=== PATIENT | male | born 1995 | race Caucasian/White ===

== ENCOUNTER 2023-09-09 06:34 | Emergency (ER) | payer BC, SELFPAY ==
[2023-09-09 06:40] VITALS: BP 150/95; PULSE 99; RESP 20; TEMP 37.1; O2SAT 96; BMI 45.3
--- NOTE | 2023-09-09 06:42 | ED.NAVMDI ---
HPI - Nausea/Vomiting/Diarrhea General Chief complaint: Abdominal Pain Stated complaint: n/v Time Seen by Provider: 09/09/23 06:41 Source: patient Mode of arrival: ambulatory Limitations: no limitations History of Present Illness ED Provider: Dr. Derrek Hinojosa HPI Narrative: 28-year-old male with no significant past medical or surgical history who presents emergency department for evaluation nausea and vomiting x1 month. The patient states that his symptoms usually come on in the morning. He states that he has nausea and then dry heaves multiple times. He complains of intermittent epigastric pressure-like pain which is worse with the vomiting. He states that he sometimes retch is violently when he vomits and developed dots (petechiae) on his face. He also states that occasionally he vomits up bright red blood. Patient denied fever, chills, chest pain, shortness of breath, dark stools, bloody stools. He states that the vomiting sometimes comes on later in the day as well and he felt ill last night but was able to finish working. He states this morning his encouraged him to go to the emergency department to get evaluated since his symptoms have been persisting for a month. Denied weight loss or weight gain. He states he does smoke and vapes marijuana multiple times a day. Related Data Previous Rx's ?Medication ?Instructions ?Recorded omeprazole 20 mg capsule,delayed 20 mg PO DAILY 30 days #30 caps 09/09/23 release ondansetron 4 mg disintegrating 4 mg PO Q6-8H PRN nausea and 09/09/23 tablet vomiting #20 tabs Allergies Allergy/AdvReac Type Severity Reaction Status Date / Time No Known Allergies Allergy Unverified 09/09/23 06:41 [No Known Allergies*] Review of Systems Review of Systems: Yes all other systems are reviewed and are negative [facility] Past Medical History [facility] Narrative: Social history: He denies tobacco use. He denies alcohol use. He does smoke and vape marijuana daily. He states that he has done this for a long time. Social History Social History Advance Directives: No Advance Directives Information Provided: Yes Physical Exam Vital Signs: Vital Signs: Last Vital Signs Temp 98.6 F 09/09/23 10:26 Pulse 74 09/09/23 10:26 Resp 16 09/09/23 10:26 BP 116/70 09/09/23 10:26 Pulse Ox 99 09/09/23 10:26 O2 Del Method Room Air 09/09/23 10:26 BMI result Body Mass Index 45.3 Vital signs revealed an elevated respiratory rate of 20 and elevated blood pressure of 150/95 otherwise unremarkable Exam: General: Awake, alert in no distress Head: Normocephalic, atraumatic EENT: PERRL, Lids normal, sclera normal, conjunctiva normal, nose normal , ears normal, throat without erythema or exudates Neck: Supple, no adenopathy Lung: breath sounds symmetric, no wheezing, rales or rhonchi Chest: symmetric movement, nontender Heart: regular rate and rhythm, normal S1, S2 no murmurs or rubs Abdomen: soft, mild to moderate epigastric tenderness, nondistended, normal bowel sounds Back: no vertebral tenderness, no CVAT Extremities: no deformities, moves all extremities symmetrically Neuro: Awake, alert, oriented, normal speech, cranial nerves intact, moves all extremities symmetrically Psych: Pleasant, cooperative Medications Administered Discontinued Medications Generic Name Dose Route Start Last Admin Trade Name Freq PRN Reason Stop Dose Admin Sodium Chloride 1,000 mls @ 999 mls/hr 09/09/23 07:00 09/09/23 08:58 Ns IV 09/09/23 08:00 Infused .Q1H1M STA Infusion Ketorolac Tromethamine 15 mg 09/09/23 07:00 09/09/23 07:19 Ketorolac Tromethamine 15 Mg/Ml Vial IVPUSH 09/09/23 07:01 15 mg ONCE STA Administration Ondansetron HCl 4 mg 09/09/23 07:00 09/09/23 07:19 Ondansetron Hcl 4 Mg/2 Ml Vial IVPUSH 09/09/23 07:01 4 mg ONCE ONE Administration Medical Decision Making Medical Decision Making MDM Narrative: 28-year-old male with no significant past medical history or surgical history who presents emergency department for evaluation of nausea, vomiting, epigastric pain x1 month. Patient does smoke and vape marijuana daily. Vital signs revealed an elevated blood pressure and elevated respiratory rate otherwise unremarkable. Physical examination revealed epigastric tenderness. Differential diagnosis: ?Includes but is not limited to gastritis, esophagitis, cyclic vomiting syndrome, cannabis hyperemesis syndrome, anemia, electrolyte abnormalities Following evaluation was ordered: CBC, CMP Patient was initially treated with the following: IV insert, Toradol 15 mg IV, Zofran 4 mg IV, normal saline x1 L Course: 10:50 My interpretation patient's laboratory evaluation as follows: WBC elevated 11,500. H&H was normal. CMP was normal. Patient feels significant better after the above treatment. The patient's presentation is consistent with cannabis hyperemesis syndrome and I did discuss this with him. He was advised to stop smoking marijuana for at least 6 months to reverse this syndrome. He was also given prescription for Prilosec 20 mg once a day for 1 month and Zofran ODT 4 mg q.6 hours as needed for nausea and vomiting. Patient was given a work note, printed and verbal instructions and discharged home. Admission/Observation Consideration of admission/observation: Escalation of care including admission/observation considered Lab Data MDM Lab Attestation statement: I reviewed the patient's lab results. 09/09/23 07:10 09/09/23 07:10 Labs: Lab Results 09/09/23 Range/Units 07:10 WBC 11.5 H (4.8-10.8) X10*3/uL RBC 5.29 (4.60-5.80) X10*6/uL Hgb 14.6 (14.0-18.0) g/dl Hct 43.7 (42.0-52.0) % MCV 82.6 (80.0-98.0) fL MCH 27.6 (27.0-33.0) pg MCHC 33.4 (31.0-36.0) g/dl RDW 13.2 (11.0-16.0) % Plt Count 305 (160-400) X10*3/uL MPV 9.6 (9.4-12.4) fL Immature Gran % (Auto) 0.3 (0.0-0.4) % Neut % (Auto) 72.2 (45-73) % Lymph % (Auto) 14.7 L (20-40) % [place] % (Auto) 9.7 (2-11) % Eos % (Auto) 2.6 (0-4) % Baso % (Auto) 0.5 (0-2) % Lymph # (Auto) 1.7 (1.2-4.9) X10*3/uL [place] # (Auto) 1.1 (0.1-1.2) X10*3/uL Eos # (Auto) 0.3 (0.0-0.4) X10*3/uL Baso # (Auto) 0.1 (0.0-0.2) X10*3/uL Abs Immat Gran (auto) 0.04 H (0.00-0.03) X10*3/uL Absolute Neuts (auto) 8.3 (2.0-8.3) x10*3/uL Absolute Nucleated RBC 0.000 (0.0-0.012) X10*3/uL Nucleated RBC % (auto) 0.0 (0.0-0.2) /100WBC Sodium 139 (135-145) mmol/L Potassium 3.7 (3.3-5.1) mmol/L Chloride 106 (96-108) mmol/L Carbon Dioxide 21 L (22-29) mmol/L Anion Gap 16 (12-20) BUN 9 (9-16) mg/dL Creatinine 0.99 (0.5-1.4) mg/dL Estim Creat Clear Calc 169.9 Estimated GFR > 60 Random Glucose 108 (60-115) mg/dL Calcium 9.8 (8.4-10.2) mg/dL Total Bilirubin 0.5 (0.0-1.0) mg/dL AST 18 (5-37) U/L ALT 16 (0-40) U/L Alkaline Phosphatase 76 (39-117) U/L Total Protein 8.1 H (6.5-8.0) g/dL Albumin 4.5 (3.5-5.0) g/dL Prescription Management I considered prescription management with: Other (Antiemetics, proton pump inhibitors, antacid) Chronic Conditions Patient?s care impacted by: Other (Marijuana use disorder) Discharge Plan Discharge Clinical Impression: Cyclic vomiting syndrome, Cannabis use disorder, Gastritis Patient Disposition: Home, Self-Care Instructions: Cyclic Vomiting Syndrome (ED) Additional Instructions: You had a complete blood count and comprehensive metabolic panel which were normal. Your symptoms and presentation are consistent with cyclic vomiting syndrome caused by daily marijuana use. This is also called cannabis hyperemesis syndrome. Daily marijuana use can change the blood chemistries in our brain in the area of the brain that can trigger vomiting. The treatment is to stop smoking marijuana for at least 6 months and allow your brain chemistries to change back to normal. Therefore it is important that you do not smoke marijuana if you want to get better. Take Prilosec (omeprazole) 20 mg pills, 1 pill once a day for 1 month. ?This medication shuts off your acid production and lets the inflammation in your stomach and esophagus heal. Take Zofran ODT 4 mg pills, 1 pill dissolved in your mouth every 8 hours as needed for nausea and vomiting. Follow-up with your doctor in 2 days. Please return to the emergency department if your symptoms get worse or if you develop any symptoms that are concerning to you. Please see the work note Prescriptions: New omeprazole 20 mg capsule,delayed release(DR/EC) 20 mg PO DAILY 30 Days Qty: 30 0RF ondansetron 4 mg tablet,disintegrating 4 mg PO Q6-8H PRN (Reason: nausea and vomiting) Qty: 20 0RF Stand Alone Forms: Work/School Release Print Language: Sudanese
[2023-09-09 07:15] LABS: MANUAL DIFF FLAG NO
[2023-09-09 07:18] LABS: Basophils Absolute Auto 0.1 X10*3/uL (0.0-0.2); Basophils Percent Auto 0.5 % (0-2); Eosinophils Absolute Auto 0.3 X10*3/uL (0.0-0.4); Eosinophils Percent Auto 2.6 % (0-4); Hematocrit 43.7 % (42.0-52.0); Hemoglobin 14.6 g/dl (14.0-18.0); Imm Gran Abs Auto 0.04 X10*3/uL (0.00-0.03); Imm Gran Pct Auto 0.3 % (0.0-0.4); Lymphocytes Absolute Auto 1.7 X10*3/uL (1.2-4.9); Lymphocytes Percent Auto 14.7 % (20-40); Mean Corpuscular HGB Conc 33.4 g/dl (31.0-36.0); Mean Corpuscular Hemoglobin 27.6 pg (27.0-33.0); Mean Corpuscular Volume 82.6 fL (80.0-98.0); Mean Platelet Volume 9.6 fL (9.4-12.4); Monocytes Absolute Auto 1.1 X10*3/uL (0.1-1.2); Monocytes Percent Auto 9.7 % (2-11); Neutrophils Absolute Auto 8.3 x10*3/uL (2.0-8.3); Neutrophils Percent Auto 72.2 % (45-73); Platelet Count 305 X10*3/uL (160-400); Red Blood Count 5.29 X10*6/uL (4.60-5.80); Red Cell Distribution Width 13.2 % (11.0-16.0); White Blood Count 11.5 X10*3/uL (4.8-10.8)
[2023-09-09] MEDS: 0.9 % Sodium Chloride 1,000 ML 999 ML IV (07:18)
[2023-09-09] MEDS: Ketorolac Tromethamine 15 MG/ML VIAL IVPUSH (07:19)
[2023-09-09] MEDS: ondansetron HCL 4 MG/2 ML VIAL IVPUSH (07:19)
--- NOTE | 2023-09-09 07:28 | PC.NURSE ---
alert and oriented with even and unlabored respirations. IV established, labs obtained and sent. medicated per the MAR w/ fluids infusing at this time.
[2023-09-09 07:29] LABS: Alanine Aminotransferase 16 U/L (0-40); Albumin Level 4.5 g/dL (3.5-5.0); Alkaline Phosphatase 76 U/L (39-117); Anion Gap 16 (12-20); Aspartate Amino Transferase 18 U/L (5-37); Bilirubin Total 0.5 mg/dL (0.0-1.0); Blood Urea Nitrogen 9 mg/dL (9-16); Calcium 9.8 mg/dL (8.4-10.2); Carbon Dioxide 21 mmol/L (22-29); Chloride 106 mmol/L (96-108); Creatinine Clr Calc Pharmacy 169.9; Estimated Glomerular Filt Rate > 60; Glucose Random 108 mg/dL (60-115); Potassium 3.7 mmol/L (3.3-5.1); Sodium 139 mmol/L (135-145); Total Protein 8.1 g/dL (6.5-8.0)
--- NOTE | 2023-09-09 08:08 | PC.NURSE ---
patient provided with gordon yee, fluids continue to infuse
[2023-09-09 08:18] VITALS: BP 130/77; PULSE 75; RESP 18; TEMP 37; O2SAT 97
--- NOTE | 2023-09-09 08:58 | PC.NURSE ---
patient reports improvement in pain/nausea at this time. states that he has more discomfort than anything, states that he would rate it approx a 2. fluids have infused. resting quietly in room call salter within reach. tolerated gordon nakia well
[2023-09-09 10:26] VITALS: BP 116/70; PULSE 74; RESP 16; TEMP 37; O2SAT 99
[2023-09-09 12:00] VITALS: BP 127/81; PULSE 81; TEMP 36.8; O2SAT 97
[2023-09-09 13:34] VITALS: BP 127/87; PULSE 81; RESP 16; TEMP 36.8; O2SAT 97
== END 2023-09-09 13:35 | disposition home or self-care (01) ==
PROVIDERS: Emergency Provider Emergency Medicine Emergency Medical Services
DX: R11.15 Cyclical vomiting syndrome unrelated to migraine (principal); F12.988 Cannabis use, unspecified with other cannabis-induced disorder; K29.70 Gastritis, unspecified, without bleeding; U07.0 Vaping-related disorder; R10.13 Epigastric pain
CPT/HCPCS: 36415; 80053; 85025; 96361; 96374; 96375; 99284; 99285; J1885; J2405